=== PATIENT | female | born 1985 | race American Indian/Alaskan Native ===

== ENCOUNTER 2018-03-29 08:39 | Day surgery (SDC) | payer OTHER ==
[2018-03-18 13:55] VITALS: BMI 23.5
[2018-03-29 09:33] VITALS: RESP 18
[2018-03-29 09:36] LABS: BASO # 0.02 K/mm3 (0.0-2.0); BASO % 0.2 % (0.0-3.0); EOS # 0.2 (0.0-0.7); EOS % 1.8 % (1.5-5.0); GRAN # 5.18 (1.4-6.5); HEMOGLOBIN 14.5 g/dL (12.0-16.0); LYMPH # 3.3 (1.2-3.4); LYMPH % 36.5 % (22.0-35.0); MEAN CELL VOLUME 95.8 fl (80.0-105.0); MEAN CORPUSCULAR HEMOGLOBIN 31.9 pg (25.0-35.0); MEAN CORPUSCULAR HGB CONC 33.3 g/dl (31.0-37.0); MEAN PLATELET VOLUME 9.5 fl (7.0-11.0); MONO # 0.4 (0.1-0.6); MONO % 4.5 % (1.0-6.0); RBC 4.54 10^6/uL (3.5-6.1); RED CELL DISTRIBUTION WIDTH 13.2 % (11.5-14.5); WHITE BLOOD COUNT 9.1 10^3/ul (4.5-11.0)
[2018-03-29 09:41] LABS: BLOOD UREA NITROGEN 14 mg/dL (7-21); CALCIUM 9.4 mg/dL (8.4-10.5); GFR NON-AFRICAN AMERICAN > 60; INR 1.06; PARTIAL THROMBOPLASTIN TIME 41.7 Seconds (25.1-36.5); PROTHROMBIN TIME 12.2 SECONDS (9.4-12.5)
[2018-03-29] MEDS ORDERED: Midazolam 2 MG/2 ML VIAL ONE ×2 (14:42→15:35)
[2018-03-29] MEDS ORDERED: Lidocaine 1% Inj (20ml) ONE (14:43)
[2018-03-29] MEDS ORDERED: Oxycodone/Acetaminophen 5/325 mg Tab PO PRN (15:50)
[2018-03-29] MEDS ORDERED: Sodium Chloride 0.45% 1,000 ML IV SCH (16:00)
--- NOTE | 2018-03-29 16:19 | US ---
PROCEDURE: Ultrasound-guided right thyroid fine needle aspiration biopsy. CLINICAL HISTORY: Goiter. Dominant right thyroid nodule. Evaluate for malignancy PHYSICIAN(S): Kristian Salinas M.D. TECHNIQUE: The relative risks and indications for the procedure were explained to the patient and consent obtained. The patient was placed supine on the stretcher with the neck extended and preliminary sonography of the thyroid performed. This revealed bilateral heterogeneous hypoechoic thyroid nodules. A dominant 3 cm nodule is noted in the right lower pole The neck was prepped and draped in the usual sterile fashion. Conscious sedation and monitoring were provided throughout the procedure by a nurse. 1% Xylocaine was used to anesthetize the skin and soft tissues at the access site. Three passes with a 22-gauge needle were performed under ultrasound guidance for fine needle aspiration of the 3 cm heterogeneous nodule in the right thyroid. The slides were reviewed by pathology and deemed adequate. The patient tolerated the procedure well. IMPRESSION: 1. Ultrasound guided fine needle aspiration of a 3 cm heterogeneousnodule in the right thyroid.
[2018-03-29 16:52] VITALS: TEMP 97.9
[2018-03-29 17:08] VITALS: BP 136/72; PULSE 84; O2SAT 100
[2018-03-29] MEDS ORDERED: Midazolam 2 MG/2 ML VIAL IVP ONE (19:26)
== END 2018-03-29 17:20 | disposition home or self-care (01) ==
LOC: SDS 08:39
PROVIDERS: ATTEND Radiology Vascular & Interventional Radiology
DX: E04.2 Nontoxic multinodular goiter (principal)
CPT/HCPCS: 10022; 36415; 76942; 80048; 84703; 85025; 85610; 85730; 88173; 88305; 99152; 99153; J2250; J2405; J3010; J7030